=== PATIENT | female | born 1955 | race Caucasian/White ===

== ENCOUNTER 2018-06-26 05:25 | Inpatient (IN) ==
[2018-06-26] MEDS ORDERED: Clindamycin Inj 900 MG/6 ML Vial ONE (06:14)
[2018-06-26] MEDS ORDERED: Vancomycin Inj 1,250 MG in Sodium Chlor 0.9% Inj 250 ML IV.SIG SCH (06:14)
[2018-06-26] MEDS ORDERED: Clindamycin 900 mg/NS Premix 900 MG/50 ML PIGGYBACK IV.SIG SCH (06:15)
[2018-06-26] MEDS ORDERED: Sodium Chlor 0.9% Inj 60 ML, Bupivacaine Liposo PF 1.3% Inj 20 ML P-ARTICULR SCH ×2 (06:15)
[2018-06-26] MEDS ORDERED: Metoprolol Tartrate 25 MG Tablet PO SCH (06:15)
[2018-06-26] MEDS ORDERED: Chlorhexidine Gluconate 2% 1 Pack (2 Cloths) TOPICAL SCH (06:15)
[2018-06-26] MEDS ORDERED: Tobramycin Sulfate 1,200 MG Vial (for ortho/sterile core) OTHER ONE (06:40)
[2018-06-26] MEDS ORDERED: Bupivacaine/Dextrose 0.75% Inj 2 ML Ampul ONE (06:53)
[2018-06-26] MEDS ORDERED: Sodium Chlor 0.9% Inj 500 ML IV.SIG SCH (07:00)
[2018-06-26] MEDS ORDERED: SODIUM CHLOR 0.9% IV.SIG SCH ×2 (07:00→10:00)
[2018-06-26] MEDS ORDERED: TRANEXAMIC ACID IV.SIG SCH ×2 (07:00→10:00)
--- NOTE | 2018-06-26 09:38 | MH ---
cc: Boone Tovar MD DATE OF ADMISSION: 06/26/2018 ADMITTING DIAGNOSIS: End-stage osteoarthritis, left knee, date of onset 2014. HISTORY OF PRESENT ILLNESS: It came on gradually. She has had 6 cortisone shots over the last few years with the last one about 3 months ago. It has helped less and less, as she had more and more. She has tried meloxicam. It did not help, so she tried diclofenac, but it upset her stomach. She now has constant pain and instability, and it interferes with activities of daily living including climbing steps and stairs, and, therefore, she is seeking total knee replacement arthroplasty. PERSONAL/SOCIAL HISTORY: She is a nonsmoker. She drinks occasionally. 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 PAST MEDICAL HISTORY: Arthritis, depression, blood pressure, hypothyroidism, low back pain. PAST SURGICAL HISTORY: Tonsillectomy, adenoidectomy, , cholecystectomy. CURRENT MEDICATIONS: 1. Hydrocodone as needed for pain, but not daily. 2. Tramadol as needed for pain. 3. Xanax. 4. Aspirin. 5. Loratadine. 6. Vitamins and supplements. 7. Ambien as needed. 8. Bystolic. 9. Amlodipine. 10. Statin drug. 11. Losartan. 12. Venlafaxine. 13. [place] Thyroid. 14. Montelukast. PHYSICAL EXAMINATION: VITALS: Reveals a white female, who is 5 feet 4 inches tall and 210 pounds, BMI 36. MUSCULOSKELETAL: She walks with a distinct limp on the left leg. There is a mild varus deformity. She has almost full extension. She flexes to 120 degrees, but complains of a lot of pain after 90 degrees. Skin condition is good. No pain on range of motion of the left hip. She moves her toes well. There is no edema of the left foot pedal pulses are palpable. HEART: Regular rhythm. No murmurs. LUNGS: Clear to auscultation. ABDOMEN: Soft and supple. Kidney not enlarged, tender. Bowel sounds active. DIAGNOSTIC DATA: Her preoperative workup was satisfactory with borderline changes on her EKG, and she is medically cleared. Progressive x-rays were reviewed including x-rays as far back as 2014 and MRI scan back in 2016. Recent x-rays reveal [id number] medial compartment with mild changes in the patellofemoral joint. PLAN: The diagnosis, treatment, prognosis, the surgery itself, and the potential risks, hazards, complications, expected results, postoperative course, post-hospital course, pain management issues have all been discussed in detail with the patient. Detailed informed consent documented on the office record. Nonoperative treatment alternatives were also discussed including viscosupplementation. MD DIRK Main/ , 07:17 AM , 07:26 AM
[2018-06-26] MEDS ORDERED: Aluminum/Magnesium/Simethacone Susp 30 ML UDC PO PRN (09:56)
[2018-06-26] MEDS ORDERED: Bisacodyl 10 MG Supp RECTAL PRN (09:56)
[2018-06-26] MEDS ORDERED: Ropivacaine 0.5% PF Inj 20 ML Vial ONE (09:59)
[2018-06-26] MEDS ORDERED: Post-op Orders (for Pharmacy) OTHER STA (10:30)
[2018-06-26] MEDS: Sod Chloride 0.9% Inj 1,000 ML IV.CONT SCH ×2 (10:54→20:04)
--- NOTE | 2018-06-26 11:28 | MP ---
cc: Boone Tovar MD DATE OF OPERATION: 06/26/2018 PREOPERATIVE DIAGNOSIS: Osteoarthritis, left knee. POSTOPERATIVE DIAGNOSIS: Osteoarthritis, left knee. OPERATIVE PROCEDURES: Total knee replacement arthroplasty, left knee, using cemented Biomet-Vanguard components; femur 65 mm, tibia 67 mm with I-beam stem, polyethylene 10-mm flat, patella extra small. SURGEON: Boone Tovar MD. ANESTHESIA: Spinal. TECHNIQUE: After induction of spinal anesthesia, the left lower extremity was thoroughly prepped with alcohol and ChloraPrep, and draped in a routine fashion. After application of Esmarch bandage, tourniquet inflated to 300 mmHg. Midline skin incision was made and the medial parapatellar arthrotomy incision was carried out. The medial structures were gently elevated from the medial tibial plateau and osteophytes excised. Anterior debridement was carried out. Superior debridement was carried out. The femoral canal opened anterior to the posterior cruciate ligament and the distal femoral cutting guide set at 6 degrees was used. Distal femoral cut was made. AP and chamfer cuts were made in proper rotational orientation. This was for a 65-mm femoral implant. The patient does have an AP, ML mismatch of a slight degree. The 62.5 mm would notch the cortex. A tibial cut was made following routine technique using external tibial guide, referencing 4 mm from the lower most portion of tibial plateau cut. There was good alignment. Debridement of the joint was carried out. Spacer block used, 10-mm spacer block fits nicely, with little tightness in flexion. Patella was prepared following routine technique. All trial implants were placed. Good position and alignment and tracking. Slight anterior positioning of the tibia in relation to the femur. We will assess it after it is cemented. Exparel was injected all around the joint. Femoral canal plugged with bone. Bony surfaces were thoroughly lavaged and suctioned out, and using 2 units of Simplex cement with mg of Nebcin in it. Tibial tray placed first in proper external rotation. All excess cement removed. Femur was then implanted in place. All excess cement removed. Knee was extended with a 10-mm spacer and patellar implant cemented in. Once the cement solidified, knee was checked in full extension. There was good flexion with mild anterior position of the tibia in relation to the femur, but there was no obvious tightening of the PCL to recess. Patella tracks well. Trial implants removed. Joints are all thoroughly lavaged and suctioned out and the 10-mm polyethylene spacer put in and clamped; and position, alignment, and stability are good. Tourniquet released as soon as the implants were placed. Hemostasis obtained with cautery. A 1/8-inch Hemovac placed in the joint, brought out superolaterally. The knee was closed in mid flexion with 3 interrupted #2 Vicryl sutures and then a #2 Quill running, subcutaneous tissue with 2-0 Vicryl, skin with 3-0 Quill and Prineo dressing system, and wrapped with Ankit bandage and soft roll with ice bladder on the knee. The patient is to get an adductor nerve block before she is out of the room. MD DIRK Main/johnna/poppy , 10:12 AM , 10:22 AM
--- NOTE | 2018-06-26 11:36 | XR ---
EXAM DATE: 06/26/2018 11:32 AM EDT AGE/SEX: 62 years / Female INDICATIONS: Post op left knee surgery. CLINICAL DATA: This is the patient's initial encounter. Patient reports that signs and symptoms have been present for 1 day and indicates a pain score of 8/10. MEDICAL/SURGICAL HISTORY: None. None. COMPARISON: No prior exams available for comparison. FINDINGS: Patient is status post knee arthroplasty. Arthropathic components are in anatomic alignment and well positioned. There is no significant fracture. Surgical drain is noted. Immediate postsurgical soft ti ssue changes. CONCLUSION: 1. Status post left knee arthroplasty, as above. Electronically signed by: William Rodrigez MD 06/26/2018 11:35 AM EDT
[2018-06-26] MEDS: Ketorolac Inj 30 MG/ML (IVP) Vial IV.PUSH SCH ×2 (11:50→18:32)
[2018-06-26] MEDS: Clindamycin 900 mg/NS Premix 900 MG/50 ML PIGGYBACK IV.SIG SCH ×2 (18:32→23:30)
[2018-06-26] MEDS: Montelukast 10 MG Tablet PO SCH (18:32)
[2018-06-26] MEDS: Vancomycin Inj 1,000 MG in Sodium Chlor 0.9% Inj 250 ML IV.SIG SCH (20:02)
[2018-06-26] MEDS: Senna/Docusate Sodium 8.6/50 MG Tablet PO SCH (20:03)
[2018-06-26] MEDS ORDERED: Loratadine 10 MG Tablet PO PRN (21:00)
[2018-06-26] MEDS: Zolpidem Tartrate 5 MG Tablet PO PRN (23:30)
[2018-06-27] MEDS: Ketorolac Inj 30 MG/ML (IVP) Vial IV.PUSH SCH ×3 (02:17→17:46)
[2018-06-27] MEDS: Thyroid 60 MG Tablet PO SCH (05:04)
[2018-06-27 05:12] LABS: Hematocrit 34.1 % (35.0-46.0); Hemoglobin 11.5 gm/dL (11.6-15.3)
[2018-06-27] MEDS: Sod Chloride 0.9% Inj 1,000 ML IV.CONT SCH ×2 (06:26→16:56)
--- NOTE | 2018-06-27 08:01 | P.DCO ---
- Physical Therapy Knee: Total knee, Protocol: Left, Full weight bearing Left Lower Extremity Weight Bearing: Weight bearing as tolerated Left Lower Extremity Range of Motion: Active assistive ROM - Nursing Dressing changes: Do not change dressing - Certification Need for Home Health services: I have seen patient Nella Farley on 06/27/18. My clinical findings support the need for the requested home health care services because: Need for Home Health Services: Medication compliance is questionable, Limited ability to care for self Homebound Certification: I certify that my clinical findings support that this patient is homebound because: Homebound Certification: Unsafe to leave home unassisted, Unable to use public transportation
--- NOTE | 2018-06-27 08:05 | P.PNOP ---
Subjective Interval history: Lot of pain. Physical Exam Vital signs: Vital Signs 06/26/18 10:28 06/26/18 10:30 06/26/18 10:45 Temperature 97.4 F L Pulse Rate 64 63 61 Respiratory Rate 17 23 23 Blood Pressure 107/55 L 114/58 L 116/60 Pulse Oximetry 99 97 99 06/26/18 11:00 06/26/18 11:15 06/26/18 11:30 Temperature Pulse Rate 61 62 62 Respiratory Rate 15 23 14 Blood Pressure 115/60 123/61 127/64 Pulse Oximetry 100 99 97 06/26/18 11:45 06/26/18 12:00 06/26/18 13:00 Temperature Pulse Rate 68 65 69 Respiratory Rate 22 18 15 Blood Pressure 159/65 H 159/70 H 167/79 H Pulse Oximetry 98 98 94 L 06/26/18 14:00 06/26/18 16:00 06/26/18 17:32 Temperature 98.1 F 98 F Pulse Rate 74 72 Respiratory Rate 13 18 2 L Blood Pressure 143/69 H 135/68 Pulse Oximetry 94 L 96 06/26/18 20:00 06/27/18 00:00 06/27/18 04:00 Temperature 98.6 F 99.6 F 98.9 F Pulse Rate 75 82 74 Respiratory Rate 17 18 18 Blood Pressure 150/66 H 139/98 H 138/65 Pulse Oximetry 98 98 97 Intake & Output 06/26/18 06/27/18 06/27/18 18:59 06:59 18:59 Intake Total 2992.44 / 2992.44 1270 / 1270 Output Total 100 / 100 45 / 45 Balance 2892.44 / 2892.44 1225 / 1225 Weight 94.4 kg Intake: IV 892.44 / 892.44 910 / 910 NS Inj 1,000 ML @ 100 mls/hr IV 308 / 308 560 / 560 .CONT .Q10H [facility] Rx#:[id number] Ofirmev Inj 1,000 mg In 100 ml 100 / 100 @ 400 mls/hr IV.SIG Q12H [facility] Rx #:[id number] Cleocin 900 mg/NS Premix 900 mg 100 / 100 100 / 100 In 50 ml @ 100 mls/hr IV.SIG Q8H [facility] Rx#:[id number] Cyklokapron Inj 944 MG In NS 109.44 / 109.44 Inj 100 ML @ 200 mls/hr IV.SIG ONCE [facility] Rx#:[id number] Vancomycin Inj 1,000 MG In NS 250 / 250 Inj 250 ML @ 200 mls/hr IV.SIG Q12H OND[facility] Rx#:[id number] Vancomycin Inj 1,250 MG In NS 275 / 275 Inj 250 ML @ 183.333 mls/hr IV. SIG SNOUT PULLER [facility] Rx#:[id number] Oral 360 / 360 Anesthesia Amount 2100 / 2100 Output: Estimated Blood Loss 100 / 100 Wound Drainage 45 / 45 # 1 Left Anterior Knee 45 / 45 Other: # Voids 4 Date of Last Bowel Movement 06/25/18 Narrative: She is awake, alert and oriented. She has been getting intravenous Tylenol as well as intravenous Toradol and oral medications as needed (hydrocodone and tramadol) due to the fact that she has been on narcotics preoperatively, it is explained to her that her pain management would be more challenging. In spite of having received a spinal anesthetic and abductor block, she was complaining of pain in the recovery room immediately after surgery. She is able to lift her leg up. Leg is in good orientation. She moves her toes well. Pedal pulses are palpable. I instructed her how to do quadriceps isometrics and straight leg raising exercises. Results - Labs CBC & Chem 7: 06/27/18 04:18 Laboratory Results - last 24 hr 06/27/18 04:18 Hgb 11.5 L Hct 34.1 L - Imaging Impressions Knee X-Ray 06/26/18 00:00 CONCLUSION: 1. Status post left knee arthroplasty, as above. Assessment and Plan - Ortho Post Op Day # 1 - Assessment and Plan Objectively she is doing well. Labs and x-rays are good. It is going to take her a while to be able to manage the pain. We may have to use long-acting narcotics temporarily on as-needed basis. Plan to discharge her home with home health care tomorrow
[2018-06-27] MEDS: Senna/Docusate Sodium 8.6/50 MG Tablet PO SCH ×2 (08:43→20:44)
[2018-06-27] MEDS: Calcium/Vitamin D 250/125 MG Tablet PO SCH (08:44)
[2018-06-27] MEDS: amLODIPine 5 MG Tablet PO SCH (08:45)
[2018-06-27] MEDS: Vancomycin Inj 1,000 MG in Sodium Chlor 0.9% Inj 250 ML IV.SIG SCH (08:48)
[2018-06-27] MEDS ORDERED: HCTZ 12.5 MG PO SCH (09:00)
[2018-06-27] MEDS ORDERED: VALSARTAN PO SCH (09:00)
[2018-06-27] MEDS: Venlafaxine XR 75 MG Capsule PO SCH (09:59)
[2018-06-27] MEDS: Rivaroxaban 10 MG Tablet PO SCH (10:00)
[2018-06-27] MEDS: Clindamycin 900 mg/NS Premix 900 MG/50 ML PIGGYBACK IV.SIG SCH (10:04)
[2018-06-27 10:36] LABS: Calcium 8.3 mg/dL (8.5-10.1); Carbon Dioxide 25.7 meq/L (21.0-32.0); Potassium 3.5 meq/L (3.5-5.1)
[2018-06-27] MEDS: NEBIVOLOL PO SCH (10:57)
[2018-06-27] MEDS: Montelukast 10 MG Tablet PO SCH (19:33)
[2018-06-27] MEDS: Zolpidem Tartrate 5 MG Tablet PO PRN (23:54)
[2018-06-28 01:15] VITALS: RESP 16
[2018-06-28] MEDS: Ketorolac Inj 30 MG/ML (IVP) Vial IV.PUSH SCH ×2 (02:05→09:38)
[2018-06-28] MEDS: Sod Chloride 0.9% Inj 1,000 ML IV.CONT SCH ×2 (06:14→15:29)
[2018-06-28] MEDS: Thyroid 60 MG Tablet PO SCH (06:16)
[2018-06-28] MEDS: NEBIVOLOL PO SCH (09:36)
[2018-06-28] MEDS: amLODIPine 5 MG Tablet PO SCH (09:37)
[2018-06-28] MEDS: Venlafaxine XR 75 MG Capsule PO SCH (09:37)
[2018-06-28] MEDS: Rivaroxaban 10 MG Tablet PO SCH (09:38)
[2018-06-28] MEDS: Senna/Docusate Sodium 8.6/50 MG Tablet PO SCH (09:38)
[2018-06-28] MEDS: Calcium/Vitamin D 250/125 MG Tablet PO SCH (09:38)
[2018-06-28] MEDS ORDERED: Lidocaine PF 1% Inj 5 ML Syringe INFILTRATN ONE (12:00)
[2018-06-28] MEDS ORDERED: LACTATED RINGER S IV.CONT ONE (12:00)
[2018-06-28 12:11] VITALS: BP 134/63; PULSE 77; TEMP 98.3; O2SAT 93
--- NOTE | 2018-06-28 13:22 | P.PNOP ---
Subjective Interval history: Much better than yesterday. Physical therapy is suggesting [facility] She has however been up to the bathroom etc. Physical Exam Vital signs: Vital Signs 06/27/18 16:00 06/27/18 16:53 06/27/18 20:00 Temperature 98.5 F 99.5 F Pulse Rate 79 75 Respiratory Rate 14 16 Blood Pressure 154/72 H 158/71 H Pulse Oximetry 93 L 94 L 06/28/18 00:00 06/28/18 08:00 06/28/18 12:00 Temperature 99.0 F 98.9 F 98.3 F Pulse Rate 78 79 77 Respiratory Rate 16 16 16 Blood Pressure 139/65 157/70 H 134/63 Pulse Oximetry 93 L 95 93 L Intake & Output 06/27/18 06/28/18 06/28/18 18:59 06:59 18:59 Weight 94 kg Other: # Voids 2 4 Date of Last Bowel Movement 06/25/18 06/25/18 Narrative: She is sitting up. She is comfortable. She has her knee bend to about 70-80. She is able to actively extend it. Incision looks good. No undue swelling of the left knee. She moves her toes well. She got up by herself and use the walker and walk full weightbearing several steps while I watched her. Results - Labs CBC & Chem 7: 06/27/18 04:18 06/27/18 09:50 Assessment and Plan - Assessment and Plan Objectively she is doing well. Vital signs are stable. Pain controlled by oral medications. I told the patient that I really see no medical indication to send her to a [facility]. She could recover as well or better at home. Patient being discharged with home health care. Prescriptions are given for hydrocodone 5/325 2 pills 4 times a day as needed for severe pain and tramadol 50- 100 mg with 500 milligrams of Tylenol , 3 times a day as needed for milder pain. She is also prescribed Xarelto 10 mg daily for 3 weeks for prophylactic anticoagulation. She will see me in the office July 08 for follow-up with x-rays.
== END 2018-06-28 18:22 | disposition home health service (06) ==
LOC: HSDI 05:25 → EDSTATUS 07:30 → N06 14:54
PROVIDERS: ADMIT Orthopaedic Surgery; ATTEND Orthopaedic Surgery